=== PATIENT | male | born 1975 | race Caucasian/White ===

== ENCOUNTER 2016-09-03 20:13 | Inpatient (IN) | payer OTHER ==
--- NOTE | ~2016-09-03 | PA ---
Unit #: [id number] #: [id number] Patient: MANI HILTON [id number] [place] [address] [id number] I MR#: [id number] NAME: MANI HILTON. [facility] Age: Sex: M Admission Date: 09/03/2016 : 1975 Date of Assessment: 09/04/2016 Attending Physician: Steve Paredes M.D. Admitting Physician: Steve Paredes M.D. Primary Care Physician: Primary Care Physician No PSYCHIATRIC ASSESSMENT Correction to job# [id number] Incorrect medical record number was offered. The correct medical record for that dictation should be [id number]. Dictated by... Angelo Melo/clayton TD: 09/04/2016 15:12 JOB #: [id number] PSYCHIATRIC ASSESSMENT Page 1 of 1 X Steve Paredes MD X PSYCHIATRIC ASSESSMENT
--- NOTE | ~2016-09-03 | HP ---
Unit #: [id number] #: [id number] Patient: CHADWICK HILTON [id number] [place] [address] [id number] I MR#: [id number] NAME: CHADWICK HILTON. ROOM: P206 Age: 40 Sex: M Admission Date: 09/03/2016 : 1975 Attending Physician: Steve Paredes M.D. Admitting Physician: Steve Paredes M.D. Primary Care Physician: Primary Care Physician No HISTORY AND PHYSICAL HISTORY OF PRESENT ILLNESS Chadwick is a 40 year old admitted to [address] [place] [address] because of his polysubstance abuse which includes alcohol, crack cocaine and benzodiazepines. PAST MEDICAL HISTORY 1. Long history of alcohol abuse. 2. History of illicit substance abuse to include crack cocaine and benzodiazepines. 3. Hepatitis C. 4. History of IV drugs. PAST SURGICAL HISTORY 1. Bilateral inguinal hernia repair. 2. Umbilical hernia repair. ALLERGIES No known drug allergies. SOCIAL HISTORY He smokes on occasion. Describes himself as a binge drinker. He had been sober for many, many months and recently relapsed. He also admits to a history of illicit substance abuse to include IV drugs. FAMILY HISTORY Medically noncontributory. REVIEW OF SYSTEMS CONSTITUTIONAL: No fever or chills. HEENT: Denies any sore throat, ear pain or runny nose. CARDIOVASCULAR: Denies chest pain, irregular heart rhythm or palpitations. CHEST: Denies shortness of breath or cough. No hemoptysis. GASTROINTESTINAL: Denies nausea, vomiting, diarrhea or chronic constipation. ENDOCRINE: Denies history of increased thirst or urination. No recent significant weight loss or gain. GENITOURINARY: Denies dysuria, frequency, or hematuria. SKIN: Denies any rashes. HEMATOLOGIC: Denies history of increased bleeding or bruising. MUSCULOSKELETAL: Denies any hot, swollen joints. No generalized muscle pain. NEUROLOGIC: Denies problems with vision or speech. No frequent, severe headaches. No numbness, tingling or weakness in any extremities. Denies loss of bladder or bowel control. Unit #: [id number] #: [id number] Patient: CHADWICK HILTON CURRENT MEDICATIONS 1. Detox protocol. 2. Celexa 40 mg daily. PHYSICAL EXAMINATION GENERAL: Alert, well-nourished, in no apparent distress. VITAL SIGNS: Blood pressure 140/86, heart rate 68, respirations 16, temperature 98.6. WEIGHT: 184. HEIGHT: 5 feet 7 inches. SKIN: Warm and dry without rash. The skin on the bottom of his feet is very dry, callused and cracked in areas. There is no increased redness or swelling noted. HEENT: Normocephalic. TMs not viewed. Oral and nasal passages clear. Conjunctivae clear. PERRLA. EOMs intact. NECK: Supple without lymphadenopathy or thyromegaly. HEART: Regular rate and rhythm without murmur. LUNGS: Clear. ABDOMEN: Soft, nontender. : Not done. EXTREMITIES: No evidence of cyanosis, clubbing or edema. Moves all without focal deficit. NEUROLOGICAL: Grossly within normal limits. Cranial Nerves: II: Visual feng are intact. III, IV AND : Extraocular movements are intact. Pupils are equal, round and reactive to light. V: Facial sensation is grossly normal. VII: Facial movements and expression are normal. VIII: Auditory acuity grossly intact. IX, X: Uvula is midline. Phonation is normal. XI: Patient shrugs shoulders and turns head normally. XII: Tongue protrudes in the midline. Sensory and Motor Function: Sensory and motor sensation is grossly normal. Motor: moves all extremities well. Coordination: Gait is normal. Deep Tendon Reflexes: Intact. IMPRESSION 1. Psychiatric admission. 2. Poor personal hygiene, feet. RECOMMENDATIONS PSYCHIATRIC: Per psychiatrist. MEDICAL: 1. See no contraindications to participate in facility's activities. 2. Eucerin lotion b.i.d. to the bottom of his feet. MEDICAL PROGNOSIS Good. MEDICAL CONDITION Stable. Dictated by... Cyn Mann P.A.-C. for Bob Rodriguez M.D. Unit #: [id number] #: [id number] Patient: CHADWICK HILTON CASSIDY/clayton TD: 09/04/2016 19:41 JOB #: [id number] HISTORY AND PHYSICAL Page 1 of 1 X Cyn Mann HISTORY AND PHYSICAL
--- NOTE | ~2016-09-03 | PN ---
Unit #: [id number] #: [id number] Patient: MANI HILTON [id number] [place] [address] [id number] I MR#: [id number] NAME: MANI HILTON. ROOM: P206 Age: 40 Sex: M Admission Date: 09/03/2016 : 1975 Attending Physician: Steve Paredes M.D. Admitting Physician: Steve Paredes M.D. Primary Care Physician: Qing Primary Care Physician [facility] PROGRESS NOTES [facility]ATION [facility] [address], room number [address], bed number one. DATE OF ADMISSION 09/03/16 SUBJECTIVE UPDATE This is a 40-year-old white male with longstanding history of significant alcohol withdrawal. The patient is continuing to report issues with aches, pains, notable sleep disturbance, vivid dreams, cramping, poor p.o. intake, mild tremors. He does report that diaphoresis is better today and he just feels somewhat better but still having marked symptoms. Blood pressure continues to remain high at 148/99 this morning, a pulse of 88, temperature of 97.8. Unfortunately, scoring had not been performed but (1) saw patient this morning for CIWA protocol itself. The patient is continuing to receive p.r.n. Ativan per staff on a routine basis. No suicidal ideation noted. MENTAL STATUS EXAMINATION General appearance was a limitedly groomed white male, good eye contact, somewhat older than stated age, disheveled appearance. Speech was clear, coherent with normal (2) . Mood was "a little better" with a constricted affect. Thought processes and content were fairly organized and linear. No overt evidence of psychosis. No SI. No HI reported or elicited. The patient had no evidence of psychosis. His memory seemed grossly intact. Associations were normal. Cognitive function was at baseline. He was alert and oriented x4. Insight and judgement seems to be somewhat improved. ASSESSMENT AND RECOMMENDATIONS We will continue the patient's admission for safety and stabilization for ongoing issues with detox for symptoms as noted above. The patient continues to improve and, hopefully, we will see a continued resolution of symptoms in a controlled fashion. We may need to have additional hypertension issues in place if his blood pressure does not improve soon. We will continue to monitor closely with staff and work towards disposition. Dictated by... Angelo Melo/froilan Unit #: [id number] #: [id number] Patient: MANI HILTON TD: 09/06/2016 10:26 JOB #: [id number] [facility] PROGRESS NOTES Page 1 of 1 X Steve Paredes MD X PROGRESS NOTE
--- NOTE | ~2016-09-03 | DS ---
Unit #: [id number] #: [id number] Patient: MANI HILTON [id number] [place] [address] [id number] I MR#: [id number] NAME: MANI HLITON. ROOM: [facility] Age: 40 Sex: M Admission Date: 09/03/2016 : 1975 Discharge Date: 09/07/2016 Attending Physician: Steve Paredes M.D. Primary Care Physician: Primary Care Physician No DISCHARGE SUMMARY REASON FOR ADMISSION Alcohol dependency with withdrawal and depressive symptoms. DIAGNOSTIC STUDIES PERTINENT LABORATORY DATA: Routine blood work of a CMP that showed a slight low BUN at 7 and creatinine 0.5. Calcium is 8.2. AST is 74 and ALT of 113, otherwise was normal. TSH normal at 0.7 and free T4 normal at 0.72. CBC performed also was well within normal parameters with no exception. Tox screen was negative, and urinalysis showed 1+ urobilinogen, but was otherwise negative. No other tests performed. HOSPITAL COURSE The patient was admitted for safety and stabilization for alcohol dependency and detox issues and was placed on appropriate detox protocol. The patient was also restarted on Celexa 40 mg which he has been taking in the past for his mood. He has been off of that for several days. Overall over the course of the hospitalization, the patient had a typical alcohol withdrawal protocol presentation in terms of symptoms of aches, pains, tremors, sleep disturbance, and upset stomach, nauseousness, poor p.o. intake, tremors, diaphoresis, etc. He gradually improved and was able to go to groups and activities more and more. He reported his mood was improving as well, being back on his antidepressant. The patient was also seen in house by the nurse practitioner for issues with his foot as he has been walking for several days during his binging, and he was given Eucerin cream for that. Overall, by the time of discharge, the patient was showing marked improvement. No overt signs of detox. His vital signs had stabilized, and he was thought appropriate for discharge with plan to follow up in the [facility] and also local resources there. There is no evidence of suicidal ideation or homicidal ideation, and the patient was denying any acute or new issues. DISCHARGE DIAGNOSES 1. Alcohol dependency with withdrawal, complicated. 2. Major depressive disorder, recurrent, severe, without psychotic features. DISCHARGE INSTRUCTIONS The patient to be discharged home by means of his aunt with followup with [facility] in [place] as well as other local resources for chemical dependency. DISCHARGE MEDICATIONS 1. Celexa 40 mg daily by mouth for depression. 2. Eucerin cream to be applied to his feet twice a day for foot abrasion. Unit #: [id number] #: [id number] Patient: MANI HILTON CONDITION AT DISCHARGE Improved. PROGNOSIS Hopeful. DIET Regular. ACTIVITY As tolerated with sobriety encouraged. Dictated by... Steve Paredes M.D. ELI/asia TD: 09/07/2016 09:03 JOB #: [id number] DISCHARGE SUMMARY Page 1 of 1 X Steve Paredes MD X DISCHARGE SUMMARY
--- NOTE | ~2016-09-03 | PN ---
Unit #: [id number] #: [id number] Patient: MANI HILTON [id number] [facility] [address] [place] [address] [id number] I MR#: [id number] NAME: MANI HILTON. ROOM: P206 Age: 40 Sex: M Admission Date: 09/03/2016 : 1975 Attending Physician: Steve Paredes M.D. Admitting Physician: Steve Paredes M.D. Primary Care Physician: Primary Care Physician Qing VAZQUEZ NOTES DATE 09/05/2016 SUBJECTIVE UPDATE This is a 40-year-old white male with ongoing issues with severe detox symptoms. The patient continued to complain of aches, pains, shakes, diaphoresis, poor sleep, poor GI tolerance and nauseousness as well as vital signs elevation. The patient noted to have blood pressure 157/94 this morning, pulse is 67, and temperature of 98.5. The patient continuing to receive CIWA related detox treatments per staff. MENTAL STATUS EXAM General appearance is a limitedly groomed white male presented older than stated age somewhat disheveled, fair eye contact. Speech was clear and coherent. Mood was dysphoric with constricted affect. Thought process and content were fairly organized and linear. No overt evidence of psychosis. The patient denied any SI or HI today. The patient's memory was grossly intact. His associations were normal. Cognitive functioning was at baseline. Alert and oriented times four. Insight and judgement is limited. RECOMMENDATIONS 1. Continue the patient's care for outgoing detox issues requiring CIWA. In addition to the symptoms noted above was also noted to have tremors in both hands when I saw him. The patient's symptoms are still manifesting and in process. Close monitoring and careful care is still warranted at this time. We will continue with program as is and adjust as necessary. 2. We will continue to encourage (1)___and socialization as the patient is tolerating. Dictated by... Steve Paredes M.D. ELI/katherin TD: 09/05/2016 21:47 JOB #: [id number] Unit #: [id number] #: [id number] Patient: MANI HILTON [facility] PROGRESS NOTES Page 1 of 1 X Steve Paredes MD PROGRESS NOTE
--- NOTE | ~2016-09-03 | CO ---
Unit #: [id number] #: [id number] Patient: MANI HILTON [id number] [place] [address] [id number] I MR#: [id number] NAME: MANI HILTON. ROOM: [facility] Age: 40 Sex: M Admission Date: 09/03/2016 : 1975 Attending Physician: Steve Paredes M.D. Primary Care Physician: Primary Care Physician No Consultation Date: 09/04/2016 CONSULTATION REPORT DAVID Genao is a 40-year-old, admitted to [address] [place] [address] because of his polysubstance abuse. At the time of his admission history and physical exam, the dry skin on his feet was examined. This was addressed under his admission H and P. Please see H and P dated 09/04/2016. Dictated by... Cyn Mann P.A.-C. for Angelo Feldman/hebert TD: 09/04/2016 20:15 JOB #: [id number] CONSULTATION REPORT Page 1 of 1 X Cyn Mann CONSULTATION REPORT
--- NOTE | ~2016-09-03 | PA ---
Unit #: [id number] #: [id number] Patient: MANI HILTON [id number] [facility] [address] [place] [address] [id number] MR#: [id number] NAME: MANI HILTON. ROOM: P206 Age: 40 Sex: M Admission Date: 09/03/2016 : 1975 Date of Assessment: Attending Physician: Steve Paredes M.D. Admitting Physician: Steve Paredes M.D. Primary Care Physician: Primary Care Physician No PSYCHIATRIC ASSESSMENT [facility] [address], [address], bed #2. DATE OF SERVICE 09/04/2016. INFORMANTS The patient and chart, both seem reliable. CHIEF COMPLAINT Started drinking again. HISTORY OF PRESENT ILLNESS This is a 40-year-old white male with longstanding history of chemical dependency including severe alcohol dependency as well as major depressive disorder. The patient reports now after having relapsed over the last 5 to 8 days, the patient apparently had gone to visit a friend out of town and used some Xanax and then reportedly this was a [place] to relapsing on alcohol. He has been bingeing on heavy amounts every day amounts of which precise about he is unclear. The patient also was noticed a rebound issue with his depression with suicidal thoughts that are improved today, but still residually present. The patient could not be specific about the cortical details of similar things let his relapse, but does admit having issues now with feeling anxious, depressed, tremors, severe upset stomach, and digestive issues, poor appetite, poor sleep. The patient has not been compliant with his outpatient Celexa while he has been drinking outpatient provider at this time. PAST PSYCHIATRIC HISTORY Multiple admissions for chemical dependency and mood issues with [facility] as well as other hospitals are current providers at this time. History of suicidal ideations in the past with his depression. FAMILY HISTORY No changes. SOCIAL HISTORY Limited support with family, some concerns about disposition. Medical issues significant for recent complaints of his feet hurting beyond that. Noncontributory. Unit #: [id number] #: [id number] Patient: MANI HILTON MEDICATION HISTORY Supposed to be on Celexa 40 mg daily by mouth, but has not been compliant last few days. ALLERGIES Nothing of significance. SUBSTANCE ABUSE HISTORY As noted above. MENTAL STATUS EXAMINATION General appearance, this is a poorly groomed white male, disheveled, appears older than stated age, but cooperative, responsive to interview process. Speech was clear and coherent with normal prosody. Mood was depressed with a constricted affect. Thought process and content were fairly organized and linear. No overt evidence of psychosis, vague SI, but no plan. No HI at this time. The patient's memory was grossly intact. Associations were normal. Cognitive function was at baseline. He is alert and oriented x4. Insight and judgment are poor. ASSETS AND LIABILITIES Assets include previous exposure to chemical dependency treatment as well as limited support to family. Liabilities include further relapsing with alcohol, poor judgment with triggers and outpatient followup. ADMITTING DIAGNOSES Include; 1. Alcohol dependency with withdrawal. 2. Major depressive disorder, recurrent, severe, without psychotic features. 3. Foot pain. PSYCHIATRIC PLAN We will admit the patient for further safety and stabilization for ongoing issues with alcohol dependency withdrawal and major depressive issues with suicidal ideation. The patient has been placed on detox protocol and will be monitored accordingly. He will also be restarted on his full dose of Celexa 40 mg daily to help with his depression need as well as p.r.n. trazodone. We will schedule trazodone at bedtime for sleep as well as having a medicine consult for his foot pain complaints. Treatment goal will be resolution of all the symptoms within a controlled and safe environment with disposition to be setup for a community psychiatric resources. Discharge planning noted to be community resources. ESTIMATED LENGTH OF STAY Approximately 3 to 4 days depending on the patient's progress and response to treatment. Dictated by... Angelo Melo/hebert TD: 09/04/2016 17:49 Unit #: [id number] #: [id number] Patient: MANI HILTON JOB #: [id number] PSYCHIATRIC ASSESSMENT Page 1 of 1 X Steve Paredes MD X PSYCHIATRIC ASSESSMENT
[2016-09-04 09:37] LABS: URINE APPEARANCE CLEAR; URINE BILIRUBIN NEG (NEG); URINE BLOOD NEG (NEG); URINE COLOR YELLOW; URINE GLUCOSE NEG (NEG); URINE KETONE NEG (NEG); URINE LEUKOCYTE ESTERASE NEG (NEG); URINE NITRATE NEG (NEG); URINE PH 6.5 (5-8); URINE PROTEIN NEG (NEG); URINE SPECIFIC GRAVITY 1.013 (1.003-1.035)
[2016-09-04 09:38] LABS: BASOPHIL% 0.7 % (0-2.5); EOSINOPHIL# 0.1 X10e3 (0-0.7); EOSINOPHIL% 2.7 % (0.0-7.0); HEMATOCRIT 40.4 % (38.0-50.0); HEMOGLOBIN 13.7 gm/dL (13.0-16.0); LYMPHOCYTE# 1.9 X10e3 (1.0-3.5); LYMPHOCYTE% 37.2 % (17.0-45.0); MEAN CELL VOLUME 85.8 FL (83-96); MEAN CORPUSCULAR HGB CONC 33.8 g/dL (30-36); MEAN PLATELET VOLUME 7.9 FL (6.5-11.5); MONOCYTE# 0.5 X10e3 (0-1.0); MONOCYTE% 9.2 % (3.0-12.0); NEUTROPHIL# 2.6 X10e3 (1.5-7.1); NEUTROPHIL% 50.2 % (40-75); PLATELET COUNT 184 X10e3 (140-420); RED BLOOD COUNT 4.71 X10e (3.90-5.60); RED CELL DISTRIBUTION WIDTH 13.5 % (11.0-15.5); WHITE BLOOD COUNT 5.2 X10e3 (4.0-10.5)
[2016-09-04 09:43] LABS: DIFF IND NO
[2016-09-04 09:52] LABS: ALBUMIN SERUM 3.7 g/dL (3.5-5.0); BILIRUBIN,TOTAL 0.7 mg/dL (0.2-2.0); CALCIUM SERUM 8.2 mg/dL (8.4-10.2); CREATININE SERUM 0.5 mg/dL (0.6-1.4); GLOM FILT RATE Estimated 133.7 mL/min (>60); POTASSIUM 3.6 mmol/L (3.5-5.1); PROTEIN TOTAL SERUM 6.4 g/dL (6.0-8.3); THYROID STIMULATING HORMONE 0.87 uIU/ml (0.34-5.60)
[2016-09-04 09:56] LABS: AMPHETAMINE NEG (NEG); BARBITURATES NEG (NEG); BENZODIAZEPINES NEG (NEG); COCAINE NEG (NEG); MARIJUANA NEG (NEG); OPIATES NEG (NEG); TRICYCLIC ANTIDEPRESSANTS NEG (NEG); U METHADONE NEG (NEG)
[2016-09-04 09:59] LABS: FREE THYROXIN (T4) 0.72 ng/dL (0.58-1.64)
== END 2016-09-07 09:32 | disposition home or self-care (01) | DRG 897 ==
LOC: P2S 20:13
PROVIDERS: Psychiatry & Neurology Psychiatry
PROC: HZ2ZZZZ Detoxification Services for Substance Abuse Treatment (ICD-10-PCS; principal; 2016-09-03)
DX: F10.239 Alcohol dependence with withdrawal, unspecified (principal); F33.2 Major depressive disorder, recurrent severe without psychotic features
CPT/HCPCS: 80053; 80307; 81003; 84439; 84443; 85025; 86592